=== PATIENT | male | born 1940 | race Caucasian/White ===

== ENCOUNTER 2021-02-18 14:25 | Emergency (ER) | payer OTHER, BC ==
[~2021-02-18] VITALS: Ht 182.9 cm; Wt 102.5 kg
[2021-02-18 16:35] VITALS: BP 153/83
[2021-02-18 16:35] LABS: ABSOLUTE NEUTROPHILS 12.9 thou/uL (1.4-8.2); BASOPHILS 0.3 % (0.0-2.0); EOSINOPHILS 0.3 % (0.0-3.0); HEMATOCRIT 39.9 % (42.0-52.0); HEMOGLOBIN 13.3 gm/dL (14.0-18.0); LYMPHOCYTES 4.9 % (24.0-44.0); MCH 34.1 pg (26.0-34.0); MCHC 33.3 g/dL (28.0-37.0); MCV 102.3 fL (80.0-100.0); MONOCYTES 13.6 % (1.0-8.0); POLYS 80.9 % (36.0-66.0); RDW 13.8 % (10.5-14.5)
[2021-02-18 16:40] LABS: URINE BILIRUBIN NEGATIVE (Negative); URINE BLOOD TRACE (Negative); URINE CLARITY CLEAR; URINE COLOR YELLOW; URINE GLUCOSE-RANDOM* NEGATIVE (Negative); URINE KETONES TRACE (Negative); URINE LEUKOCYTES-REFLEX NEGATIVE (Negative); URINE NITRITE-REFLEX NEGATIVE (Negative); URINE PROTEIN (DIPSTICK) 2+ (Negative); URINE SPECIFIC GRAVITY >= 1.030 (1.005-1.035)
[2021-02-18 16:45] LABS: CALCIUM 9.3 mg/dL (8.5-10.1); POTASSIUM 4.7 mmol/L (3.5-5.1)
[2021-02-18 16:49] LABS: SQUAMOUS None Seen /LPF (0-3); URINE RBC 1-2 Rare /HPF (NONE SEEN); URINE WBC-REFLEX 0-5 Rare /HPF (0-5)
[2021-02-18 16:50] LABS: BACTERIA-REFLEX None Seen /HPF (None Seen); CASTS None Seen /LPF (None Seen); CRYSTALS None Seen /LPF (None Seen)
[2021-02-18 16:54] LABS: PLATELET COUNT 201 thou/uL (150-400)
[2021-02-18] MEDS ORDERED: BYSTOLIC10 MG PO (19:26)
[2021-02-18] MEDS ORDERED: FLOMAX0.4 MG PO (19:26)
[2021-02-18] MEDS ORDERED: NEURONTIN 300M300 M2 PO (19:27)
[2021-02-18] MEDS ORDERED: MELATONIN3 M1 PO (19:28)
[2021-02-18] MEDS ORDERED: IRON325 PO (19:30)
[2021-02-18] MEDS ORDERED: DIVALPROEX SOD250 M3 PO (19:31)
[2021-02-18] MEDS ORDERED: VENLAFAXINE HCL75 M2 PO (19:32)
[2021-02-18] MEDS ORDERED: LIPITOR40 MG PO (19:32)
[2021-02-18] MEDS ORDERED: SEROQUEL 25 MG25 MG PO (19:33)
[2021-02-18] MEDS ORDERED: VENLAFAXINE HC150 MG PO (19:34)
[2021-02-18] MEDS ORDERED: MYRBETRIQ50 MG PO (19:36)
[2021-02-18] MEDS ORDERED: BENICAR20 MG PO (19:36)
[2021-02-18] MEDS ORDERED: ST. JOSEPH ASPI81 MG PO (19:37)
[2021-02-18] MEDS ORDERED: FLONASE 0.05%50 MCG NASAL (19:37)
[2021-02-18] MEDS ORDERED: PROTONIX40 M2 PO (19:38)
--- NOTE | 2021-02-19 07:30 | EKG ---
[address] [place] [address] ELECTROCARDIOGRAM REPORT Name: DONNY TAYLOR Room #: DEP LAYO Olivas#: [id number] Admission: 02/18/21 Attend Phys: Discharge: 02/18/21 Date of : 38 Report #: [id number] [facility] ED Test Date: 2021-02-18 Test Time: 16:16:34 Pat Name: DONNY TAYLOR Department: Room: Gender: M It Project Coordinator: : 1940 Requested By: Chema Hankins Order Number: [id number] MD: Freddie Ye Measurements Intervals [place] Rate: 84 P: 46 OK: 155 QRS: 63 QRSD: 97 T: 4 QT: 353 QTc: 418 Interpretive Statements Sinus rhythm Inferior infarct, age indeterminate No previous ECG available for comparison Electronically Signed On 02-19-2021 7:30:11 CDT by Freddie Ye [email or web address] <ELECTRONICALLY SIGNED> By: Freddie Ye MD, [facility] 02/19/21 0730 1616 1616 Freddie Ye MD, FACC /EPI
== END 2021-02-18 21:15 ==
LOC: ER 14:25
PROVIDERS: Emergency Medicine; Nurse Practitioner
DX: R41.82 Altered mental status, unspecified (principal); Z20.822 Contact with and (suspected) exposure to COVID-19; D72.829 Elevated white blood cell count, unspecified; Z79.82 Long term (current) use of aspirin; Z79.899 Other long term (current) drug therapy; Z79.891 Long term (current) use of opiate analgesic; Z79.1 Long term (current) use of non-steroidal anti-inflammatories (NSAID)

== ENCOUNTER 2021-02-18 15:24 | Inpatient (IN) | payer OTHER, BC ==
[~2021-02-18] VITALS: Ht 180.3 cm; Wt 93.4 kg
[2021-02-18] MEDS ORDERED: FLOMAX0.4 MG PO (19:26)
[2021-02-18] MEDS ORDERED: BYSTOLIC10 MG PO (19:26)
[2021-02-18] MEDS ORDERED: NEURONTIN 300M300 M2 PO (19:27)
[2021-02-18] MEDS ORDERED: MELATONIN3 M1 PO (19:28)
[2021-02-18] MEDS ORDERED: IRON325 PO (19:30)
[2021-02-18] MEDS ORDERED: DIVALPROEX SOD250 M3 PO (19:31)
[2021-02-18] MEDS ORDERED: LIPITOR40 MG PO (19:32)
[2021-02-18] MEDS ORDERED: VENLAFAXINE HCL75 M2 PO (19:32)
[2021-02-18] MEDS ORDERED: SEROQUEL 25 MG25 MG PO (19:33)
[2021-02-18] MEDS ORDERED: VENLAFAXINE HC150 MG PO (19:34)
[2021-02-18] MEDS ORDERED: MYRBETRIQ50 MG PO (19:36)
[2021-02-18] MEDS ORDERED: BENICAR20 MG PO (19:36)
[2021-02-18] MEDS ORDERED: ST. JOSEPH ASPI81 MG PO (19:37)
[2021-02-18] MEDS ORDERED: FLONASE 0.05%50 MCG NASAL (19:37)
[2021-02-18] MEDS ORDERED: PROTONIX40 M2 PO (19:38)
--- NOTE | 2021-02-19 01:20 | NUR ---
PATIENT CAME INTO THE UNIT AT 1900. HE WAS ADMITED TO RM [address] YOUNG.HE DENIES PAINS AND LUNGS ARE CLEAR BS ACTIVE X4 QUADS. HE IS IS ALERT AND ORIENTED. MEDICATION ARE VERIFIED AND DOCUMENTED PER ORDER HE DENIES PAINS AND DISCOMFORT AT THIS TIME.DENIES SI/AVH/AH. CALL TO HOSPITALIST AND SHE SAW THE PATIENT. NO SKIN ISSUE NOTED ON ASSESSMENT,BS ACTIVE X4 QUADS, ABD IS SOFT NONE TENDER. HE IS COMFORTABLE WITH CARE AND ADMISSION. PATIENT IS O FALL PRECAUTION. BED IS LOW, LOCKED AND ALARMED. YELLOW AND SOCKS AND TOP ON . O78ECOIDSE CHECK IS ONGOING. PERSONAL ITEMS ARE NOTED.CONTINE CARE.
[2021-02-19 04:34] LABS: CHOLESTEROL 96 mg/dL (<200); HDL CHOLESTEROL 37 mg/dL (>40); LDL CHOLESTEROL 44 mg/dL (<100); TC:HDL 2.6 Ratio (Not establshd); TRIGLYCERIDE 75 mg/dL (<150); VLDL 15 mg/dL (<40)
[2021-02-19 05:06] LABS: SERUM ASSESSMENT c
[2021-02-19 09:58] VITALS: BP 147/55
[2021-02-19 10:19] LABS: URINE BILIRUBIN NEGATIVE (Negative); URINE BLOOD 1+ (Negative); URINE CLARITY CLEAR; URINE COLOR YELLOW; URINE GLUCOSE-RANDOM* NEGATIVE (Negative); URINE KETONES NEGATIVE (Negative); URINE LEUKOCYTES NEGATIVE (Negative); URINE NITRITE NEGATIVE (Negative); URINE PROTEIN (DIPSTICK) 1+ (Negative); URINE SPECIFIC GRAVITY >= 1.030 (1.005-1.035)
[2021-02-19 10:31] LABS: BACTERIA 1-9 Few /HPF (None Seen); CASTS None Seen /LPF (None Seen); CRYSTALS None Seen /LPF (None Seen); MUCUS 0-3 Light strn/LPF (None Seen); SQUAMOUS 0-3 Few /LPF (0-3); URINE RBC 1-2 Rare /HPF (NONE SEEN); URINE WBC 1-5 Rare /HPF (NONE SEEN)
--- NOTE | 2021-02-19 12:57 | NUR ---
PATIENT CARE ASSUMED AT 0700, PATIENT SITTING IN THE DAY ROOM, ALERT AND ORIENTED X3, PATIENT IS HARD OF HEARING EVEN WITH THE EARING AID, PATIENT IS CALM AND COOPERATIVE WITH CARE, ACTIVE BOWEL SOUND WITH SOFT AND ROUNDED AMBDOMEN, BRATH SOUND CLEAR, SKIN INTACT, NO EDEMA NOTED, PATIENT TOOK HIS MEDICATION WHOLE WITHOUT ANY PROBLEM, PATIENT AMBULATE ON A LORE CHAIR, HE IS 2 TO 3 PERSON ASSIST, PATIENT RUNNING TEMP OF 99.6 AND 103.1, DOCTOR ILA WAS NOTIFIED, HE ORDERED UA, THE RESULT CAME BACK WITH PROTEIN AND BLOOD IN URINE, FALL PRECAUTION IN PLACE, NO BEHAVIOR CHANGES, PATIENT DENIES SI/HI, WILL CONTINUE TO MONITOR PATIENT FOR SAFETY AND BEHAVIOR
[2021-02-19 20:02] VITALS: BP 142/56
[2021-02-20 01:06] LABS: GLYCOHEMOGLOBIN (HGB A1C) 5.5 % (4.8-5.6)
--- NOTE | 2021-02-20 03:24 | NUR ---
PATIENT SITTING UP IN DAY ROOM AT BEGINNING OF SHIFT, WHEN DOING ASSESSMENT, PATIENT IS UNABLE TO FOLLOW ALONG IN CONVERSATION, WAS UNABLE TO ANSWER ASSESSMENT QUESTIONS. TOOK 2 STAFF MEMBERS TO PUT IN BED WHERE HE IS IS RESTING COMFORTABLY IN BED.
[2021-02-20 09:43] VITALS: BP 148/58
--- NOTE | 2021-02-20 10:50 | NUR ---
New [facility] admit for depression/SI. Advanced age 80, very hard hearing. Febrile past 2 days. Intake 75% lunch yesterday with refusal dinner. 2 different wts at admit 225 vs 204 lb. BMI 29. Follow wt/intake patterns but presents low nutrition risk.
--- NOTE | 2021-02-20 12:45 | NUR ---
PATIENT HAS BEEN UP, AND OUT IN [facility], SITTING IN [facility], PARTICIPATES IN GROUP THERAPY. PATIENT TOOK ALL MEDICATION WHOLE WITHOUT DIFFICULTY, HE IS EATING MEALS, AND DRINKING FLUID WELL. PATIENT DENIES SUICIDAL/HOMICIDAL IDEATION. PATIENT REQUIRES MAX ASSIST OF STAFF TO TRANSFER, AND PROVIDE ADL CARE. PATIENT'S TEMPRATURE THIS MORNING WAS 100.3, TYLENOL GIVEN FOR LOWER BACK PAIN, TEMP RECHECKED WITH RESULT OF 97.7. DR. YOUNG AWARE. FLU SWAB COMPLETED, SENT TO LAB, AWAITING RESULT. PATIENT IS TO ISOLATE TO ROOM TILL THE FLU RESULT IS OUT. AFFECT IS FLAT/BLUNTED, MOOD IS CALM, EUTHYMIC. PATIENT DENIES SUICIDAL IDEATION, ACKNOWLEDGES DEPRESSION, BUT NOT ABLE TO RATE IT. HE STATES HE IS "ANXIOUS TO GO HOME". NO AGITATION OR AGGRESSIVE BEHAVIOR NOTED AT THIS TIME, WILL MONITOR FOR SAFETY.
--- NOTE | 2021-02-20 16:04 | NUR ---
02-20-2021--1600--Call from [facility], Aubrey (son)--[phone]--I advised him that the test for flu that was done came back negative. Son expressed concerns about him not being up and moving and not having his cane (which is what he uses at home. He can't use a walker due to the injury to his left arm. Son wondered if PT/OT could be ordered so he can get up and moving. He is concerned that a week prior to him coming here he appeared to be declining and he didn't want him to slip further. Advised son I will let the doctor know his concerns and see of he wants to order PT/OT for him when he feels well enough.
[2021-02-20 19:08] VITALS: BP 154/76
--- NOTE | 2021-02-20 23:01 | NUR ---
PATIENT SITTING IN RECLINER IN COMMON AREA. PATIENT IS ALERT AND ORIENTED TO PERSON. PATIENT AT THIS TIME IS CALM AND COOPERATIVE. NOTICED THAT HE HAS MILD TREMORS WHEN ADMINISTERING HIS HS MEDS. PATIENT REQUIRES ASSISTANCE TO TRANSFER FROM CHAIR TO BED. DENIES PAIN OR NEEDS. NO DISTRESS NOTED. WILL CONTINUE TO MONITOR FOR CHANGE IN STATUS.
--- NOTE | 2021-02-21 09:09 | H ---
[facility] [place] [address] HISTORY AND PHYSICAL Name: DONNY FLANAGAN Room #: 519A-A ADM IN M.R.#: [id number] Admission: 02/18/21 Attend Phys: Nathan Ibrahim DO Discharge: Date of : 38 Report #: [id number] THIS REPORT FOR: cc: FAM - Family physician unknown FAM - Family physician unknown Nathan Ibrahim DO ~ DATE OF SERVICE: 02/19/2021 INPATIENT PSYCHIATRIC EVALUATION ATTENDING PSYCHIATRIST: Nathan Ibrahim DO MEDICAL CONSULTANTS: Tiffanie Manrique APRN and her collaborating physician, Rylan Hilliard MD, and his hospitalist team. SOURCES OF INFORMATION: ER and hospital records here at [facility]; interview with the patient, which was done with case management social worker, Jana; telephone conversation with his son and reported DPOA, Aubrey Flanagan. CHIEF COMPLAINT: Unspecified. HISTORY OF PRESENT ILLNESS: This is an 80-year-old, older than stated age appearing gentleman who is seen in a Tessie chair. We rolled it to a quiet private area at the end of the lay, given his mobility disability. The patient was not able to tell us why he was brought to the hospital or there are any specific concerns. 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 He also was able to tell us he is on his second marriage. The patient obviously had pausing with some thoughts, particularly with recent information, finding words. Interestingly, he and his both have hearing deficits, and they currently have a technology that automatically puts the phone call to the hearing aid. I believe his first was named, Elva and his second is Emiliana. He uses a CPAP machine, which I do not think has arrived to us yet. The patient was born in [place]; BS in economics, [employer] in finance, [employer] bachelor's degree, [employer]. He worked for the [employer], retired 20 years ago. His hobbies were tennis, skiing, and deer hunting. He was an avid deer keith. He described that his suicidal thoughts was feeling guilty for the amount of caregiving his has to do. The patient's son stated he fell in July. He had several small brain bleeds. He has had a precipitous decline in functioning since then. He tends to fixate on things at night. He has been up at night, depressed, threatened to throw himself down the stairs; told friend he has brain cancer, which is not true. The family would like physical therapy evaluation. In addition, the patient gets fixated on small things. We asked the son to bring copy of the [facility] paperwork, as apparently one [address] [address] HISTORY AND PHYSICAL Name: DONNY FLANAGAN Room #: 519A-A ADM IN M.R.#: [id number] Admission: 02/18/21 Attend Phys: Nathan Ibrahim DO Discharge: Date of : 38 Report #: [id number] given in the ER. He had neuropsych testing year and a half ago at [place], did not show dementia at that time. The son has mild concerns there is a dementia. PHYSICAL EXAMINATION: VITAL SIGNS: Temperature 39.5, pulse 88, respirations 17, BP 147/55, O2 sat 92%, weight 95.7 kg, height of 180.34 cm, BMI 29.4. GENERAL: In Tessie chair, unkempt, appearing to have left upper extremity with limited function. MENTAL STATUS EXAMINATION: This is a well-developed male, appearing older than stated age. Attention limited. Concentration limited. Speech soft, normal rate. Thought process linear and goal directed. Thought content, relative poverty of thought. He did have pauses when responding to things like why he was in the hospital. The patient was oriented to person. Could not get him to respond the actual day, month, or year. He did not know the name of the place. I have asked case management social worker to perform a [facility] mental status examination. The patient admitted to the statements about thinking he would be better off due to burden on his . He denied current plan to kill himself. Denied auditory, visual, or tactile hallucinations. No homicidal ideation. Mood and affect was okay, constricted, congruent. Memory believed to be impaired, not formally tested. Insight limited. Judgment limited. Fund of knowledge diminished. LABORATORY DATA: White count was high at 16.0 with no focus , H and H 13.3 and 39.9, platelet count 201. A1c high at 12.9. Sodium 139, potassium 4.7, chloride 101, bicarbonate 29, anion gap 9, BUN 18, creatinine 1.0, glucose 132, calcium 9.3, triglycerides 75, cholesterol 96, LDL 44, HDL 37. Urinalysis; 1+ protein, 1+ blood, 1-9 bacteria, light mucus, I doubt that triggered the culture. SARS-CoV-2 PCR was not detected. IMAGING: Chest x-ray was done on 02/18/2021, which showed no acute cardiopulmonary process. FORMULATION: An 80-year-old male, presenting with vague SI and failure to thrive concerns. DIAGNOSES: At this time, unspecified depressive disorder, rule out major depressive disorder, rule out major neurocognitive disorder due to vascular insult. Medical comorbidities include hypertension, hyperlipidemia, gastroesophageal reflux disease, status post left shoulder fracture, recent hemorrhagic stroke. No neurosurgery was done. PLAN: The patient is admitted voluntarily to [facility]. He is on tamsulosin 0.4 mg daily, Seroquel 25 mg at [facility] [address] [place] [address] HISTORY AND PHYSICAL Name: CLAUDIADONNY Room #: 519A-A ADM IN M.R.#: [id number] Admission: 02/18/21 Attend Phys: Nathan Ibrahim DO Discharge: Date of : 38 Report #: [id number] bedtime, gabapentin 300 mg at bedtime, atorvastatin 40 mg at bedtime, venlafaxine extended release 150 mg p.o. daily, pantoprazole 40 mg p.o. daily, olmesartan 10 mg p.o. daily, nebivolol 2.5 mg oral daily, fluticasone propionate b.i.d. nasal, ferrous sulfate, Depakote 250 b.i.d. Regarding his meds, I think we will increase his Seroquel 25 mg b.i.d. The gabapentin I do not see a great role for who is on Depakote, but there may be more of an explanation of that, I know. We will discontinue melatonin. We will screen for dementia. Estimated length of stay 10-14 days. STRENGTHS: He is insured, supportive family. WEAKNESSES: Advanced age, multiple morbidities. Time spent on this case is greater than 60 minutes, greater than 50% of time was reviewing records and coordination of care. <ELECTRONICALLY SIGNED> By: Nathan Ibrahim DO 02/21/21 0909 1227 1337 Nathan Ibrahim DO /nt
[2021-02-21 09:30] VITALS: BP 134/52
--- NOTE | 2021-02-21 11:35 | NUR ---
02-21-2021--1115--Asked doctor about ordering OT and PT for the patient as requested by DALILA, Aubrey (son). Doctor checked and it has already been started.
[2021-02-21 11:39] VITALS: BP 134/52
--- NOTE | 2021-02-21 12:47 | NUR ---
PATIENT CARE RESUMMED AT 0700. PATIENT IS A&O*2, LUNGS CLEAR, ABDOMEN SOFT WITH BOWEL SOUNDS PRESENT IN ALL 4 QUADRANTS. PATIENT STATED HE SLEPT WELL. PATIENT DENIES SI/HI/VH/AH. PATIENT STATED HE IS ANXIOUS ABOUT "GETTING A CAT SCAN DONE." PATIENT UNSURE OF WHY HE IS HERE ON OUR UNIT. PATIENT STATES HE IS A LITTLE DEPRESSED, SCALING A 1 ON A SCALE OF 0-10. PATIENT SAYS HE IS JUST "LOOKING FORWARD TO MOVING ON." PATIENT SEEN BY OT TODAY, AND PARTICIPATED WELL IN THERAPY. PATIENT IS HARD OF HEARING AND ASKS TO TAKE MASK OFF SO HE CAN READ LIPS. 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 FALL PREVENTIONS ARE IN PLACE, WILL CONTIUE TO MONITOR PATIENT FOR SAFETY AND BEHAVIORS.
--- NOTE | 2021-02-21 13:26 | NUR ---
02-21-2021--5818--Went to do the SLUMS with patient. He was asleep and when I woke him up he stated he wanted to do it tomorrow AM. I told him I would come back after breakfast.
--- NOTE | 2021-02-21 15:50 | NUR ---
02-21-2021--1530--Call from AubreySHARRIJANEE and his , José Miguel. Aubrey was wondering if we were still going to do the family meeting. I told him we can do that tomorrow and asked if 1430 would be okay. He was agreeable to the time and I told him I would talk to the doctor to determine if that time worked for him. Aubrey and his stated they were concerned that Emiliana () and the patient can't talk to each other on the portable phone on the unit and she has never used TTD as this is technology that she is not comfortable with. Aubrey states that he thinks patient's phone is not in security but Emiliana has it. He states the patient's phone and her hearing aides are "bluetoothed" together. so they can talk together with his phone. He will have Emiliana bring it tomorrow. (I will talk with my supervisor [employer]eno [employer] in the AM to see if we can keep the phone in her office and I will supervise the phone calls or the patient can do it in my office.) I explained that we can use an office in the outside of the unit so Emiliana can be present. However I explained the paitent will not be present and they cannot visit him. Aubrey wants to know why patient had the fever. I told him I didn't have the answer to that and to write down questions he has to ask tomorrow. I told him patient had a test for COVID and he flu and he was negative for both. Son was very concerned if his dad is going to get back to where he was a week and a half ago. I explained this was another question for the doctor but people woith dementia can have something happen and then deteriorate quickly. I asked what his expectations were. He would like for him to go home to Emiliana but feels we need to be looking for a placement if he is going to be too much for her to care for. I asked if Emiliana would consider an AL with him and he thought she would. I explained this is another question for the doctor. I assured him that I can start sendong out packets to AL facilities as soon as they tell me where and see if the doctor thinks this is necessary yet. Aubrey wants to know "what's next". I attempted to explain we can't tell him that with any certainty. He stated his understanding and is anxious for the meeting tomorrow. I explained PT/OT had done evals today and we would get a report tomorrow in team meeting. I explained they only see our people M-W-F not daily.
[2021-02-21 18:48] VITALS: BP 113/52
--- NOTE | 2021-02-21 21:23 | NUR ---
PATIENT RESTING IN THE COMMON AREA WATCHING TV. PT IS CALM AND COOPERATIVE. HE IS AAOX2. COMPLIANT WITH MEDICATIONS AND TREATMENT. VSS. NO S/S OF DISTRESS. PT IS UNSTEADY ON HIS FEET AND REQUIRES ASSISTANCE X2 WHEN TRANSFERRING. PATIENT IS INCONTINENT. WILL CONTINUE TO MONITOR FOR CHANGES IN STATUS.
--- NOTE | 2021-02-22 07:50 | NUR ---
02-22-2021--9585--Patient was in the dayroom. He was sittoin viktoriya his sam-chair, asleep. Woke patient up and explained we would be completing the SLUMS this morning. He was agreeable. He appeared groggy. SLUMS completed but I didn't score it because the clock didn't have all the numbers on it. He only put the 12-3-6 and 9. It did appear he got the time right. Even with this four points added in he will only score 14 which indicates substantial dementia. Will talk to doctor at team meeting this morning.
--- NOTE | 2021-02-22 08:00 | NUR ---
02-22-2021--0800--Spoke to supervisor [employer] re: the patient having his phone since his 's hearing aides were bluetoothed to his phone. She is agreeable to this. She states she will keep it in her office if necessary.
[2021-02-22 09:10] VITALS: BP 128/68
--- NOTE | 2021-02-22 13:55 | NUR ---
Alert and orientated to person and knows he is in hospital. Denies SI/HI. Asking about eye drops and also asked about CPAP per another RN. Able to stand with assistance. Breath sounds clear. Reg HR auscultated. Color pink with brisk capillary refill and palpable peripheral pulses. +1 edema in lower legs, elevated. Brief dry. Active bowel sounds over soft, rounded abdomen. BM last night per report. Contacted son and DPOA Aubrey r/t eye drops. He asked if pt had used CPAP previous night. Explained that per Gi in team meeting that he was not using CPAP during admission. Son disagreed and thought he was on CPAP. Clarified with Gi and Dr. Ibrahim, will discuss with son during family meeting this afternoon. Pt. sleeping most of day in recliner in day room. No s/o distress.
[2021-02-22 19:24] VITALS: BP 118/51
--- NOTE | 2021-02-22 23:21 | NUR ---
PATIENT RESTING IN THE COMMON AREA WATCHING TV. PT IS AAOX2. STATES THAT HE WAS TIRED AND WANTED TO GO TO BED. PT TOOK HIS MEDICATIONS ORDERED. PT WAS TRANSFERRED TO HIS ROOM. PT DENIES PAIN OR NEEDS AT THIS TIME. VSS. NO DISTRESS NOTED. WILL CONTINUE TO MONITOR.
[2021-02-23 07:15] VITALS: BP 125/54
--- NOTE | 2021-02-23 10:54 | NUR ---
Alert and orientated to person and place. Multiple requests to speak with , called x2 and son this AM. Denies SI/HI. Slightly irritable this AM but displaying humor later in AM. Conversive and participating in activity group. Breath sounds clear. Reg HR auscultated. Color pink with brisk capillary refill and palpable peripheral pulses. +1-2 edema in lower extremities. Incontinent of yellow urine and large, soft dk brown stool. Active bowel sounds over soft, rounded abdomen. Able to stand several times and transfer to from recliner, pulling himself around in WC. Currently sitting in watching TV.
--- NOTE | 2021-02-23 23:08 | NUR ---
PATIENT RESTING IN THE COMMON AREA. STATES THAT HE IS READY FOR BED UPON HS SHIFT ARRIVAL. TALKED WITH PATIENT THAT HE NEEDED HID MEDICATION BEFORE GOING TO BED. PT COMPLIED. TOOK ALL MEDICATIONS. WAS TRANSFERED TO HIS ROOM VIA WHEELCHAIR. PATIENT DENIES PAIN OR NEEDS AT THIS TIME. NO DISTRESS NOTED. HE IS AAOX3. WILL CONTINUE TO MONITOR FOR CHANGES IN STATUS.
[2021-02-24 10:15] VITALS: BP 146/69
[2021-02-24 10:55] VITALS: BP 146/69
--- NOTE | 2021-02-24 15:03 | NUR ---
PATIENT CARE RESUMMED, PATIENT UP IN LORE-CHAIR FOR MEALS AND GROUPS. PATIENT AMBULATORY TO AND FROM BATHROOM WITH 1-ASSIST, WALKER AND GAIT BELT. PATIENT IS UNSTEADY AT TIMES. PATIENT A&O*2 (SELF & TIME), LAST BOWEL MOVEMENT NOTED ON 02/24/21. PATIENT DENIES HAVING ANY PAIN AT THIS, BUT DID STATE TO THE EVS MANAGER "I HAVE CHRONIC BACK PAIN, AND IT DOESN'T HURT UNLESS IM IN THE WRONG POSITION." PATIENT STATED HE SLEPT THE BEST HE EVER DID LAST NIGHT. PATIENT PRESENTED IN A PLEASENT MOOD, SMILING AND HAPPY. PATIENT IS MEDICATION AND MEAL COMPLIANT. DENIES SI/HI/AH/VH, DEPRESSION, AND ANXIETY. PATIENTS LUNG SOUNDS ARE CLEAR, ABDOMEN IS SOFT, AND BOWEL SOUNDS ARE PRESENT IN ALL 4 QUADRANTS. PATIENT DID RECIEVE A PHONE CALL TODAY FROM HIS , WHICH DID SEEM TO CAUSE THE PATIENT SOME DISTRESS. PATIENT WITNESSED RAISING HIS VOICE TO HIS TO GET HIM THE HELL OUT OF HERE, AND GET HERE WITH THE PAPERWORK TO GET HIM OUT. [place] LATER CALMED DOWN, AND TOOK A NAP IN HIS LORE-CHAIR WATCHING THE [employer] GAME. FALL PRECAUIONS ARE IN PLACE, WILL CONTINUE TO MONITOR THE PATIENT FOR SAFETY AND BEHAVIORS.
--- NOTE | 2021-02-24 18:38 | NUR ---
This RN was sitting with pt while he used his personal cell phone to talk to his , as this was previously approved for pt. Pt began to appear worked up and raising his voice to his and son. He told his "If you don't come up here right now to talk to me, I'm commiting suicide". This RN tried to explain to pt that we are not currently having visiting hours and that it is not her fault she cannot visit. Pt appeared very focused on this and did not appear to care to listen to this explaination. It was also explained to pt to please try and remain calm on the phone. He also mentioned not eating today and that he was not going to eat tomorrow, stating "How long do you think I'll last!?". Pt also voiced mutiple complaints about being here and pt's family tried to explain to him he is here due to his suicidal thoughts and that it is not safe for pt to return home at this time, as pt was demanding them to come pick him up. Pt also made a comment of "I wish I would've just went to the basement". At the end of the phone call pt stated "well can you guys promise me to call everyday?" and the family agreed. Pt's RN, Roxanne, then called pt's to give her an update and discuss the conversation pt just had with them.
[2021-02-24 19:20] VITALS: BP 154/77
[2021-02-24 20:00] VITALS: BP 154/77
--- NOTE | 2021-02-25 03:36 | NUR ---
PATIENT SAT UP IN LORE CHAIR AT A TABLE IN DINING ROOM THIS EVENING UNTIL BEDTIME. PATIENT IS A/0X4. PATIENT HIS [place] AND WEARS 2 HEARING AIDS. ORDER RECEIVED FOR OKAY FOR PATIENT TO USE CPAP MACHINE WITHOUT A 1:1 LONG NO SI AND ROOM IS CLOSE TO NURSE STATION FOR OBSERVATION. PATIENT DENIES SI/HI TO THIS NURSE. HOWEVER, DAY NURSE REPORTS THAT WHEN HE TALKS WITH FAMILY HE THREATENS TO KILL HIMSELF IF THEY DON'T COME GET HIM AND HE TELLS FAMILY THAT WE ARE NOT FEEDING HIM WHEN HE HAS BEEN EATING VERY WELL. BELIEVE PATIENT IS TRYING TO MANIPULATE FAMILY TO CATER TO HIM. PATIENT HAS BEEN CALM AND COOPERATIVE TONIGHT. PATIENT EAGER TO START PT TO AMBULATE WITH WALKER HOPEFULLY SOON. PATIENT IS UP TO BSC WITH ASSIST X 1-2. HE DENIES PAIN. DENIES SI/HI/AVH. CPAP PLACED ON PATIENT AT BED TIME AND WORKING. PT REMOVES MASK AND PUTS BACK ON PERIODICALLY. PATIENT AWOKE FOR TIME CHECK AND WATER TO DRINK. CONTINUES TO BE PLEASANT AND COOPERATIVE. HE HAD HS SNACK AND TOOK HIS MEDS WHOLE WITH WATER. BED IN LOW POSITION AND BED ALARM IS ON. ROUTINE ROUNDS TO ASSESS SAFETY AND STATUS OF PATIENT. CHAIR ALARM WAS ON AND IN PLACE WHEN PATIENT WAS UP IN LORE CHAIR.
--- NOTE | 2021-02-25 07:22 | NUR ---
02-22-2021--1500--Family meeting in the building--Patient not present--Meeting in the building because of 's hearing deficit. Also present: Patient's son Aubrey; Aubrey's was on the phone; Dr. Ibrahim and this worker. Educated family about the possible need for assisted when he is DC'd from here. Doctor explained the issues (not walking; PT just starting) Family to discuss facillities they might be interested. Son will go to patient's house for phone call to tell worker what has been decided. He will help patient's if she can't hear.
[2021-02-25 09:02] VITALS: BP 145/73
--- NOTE | 2021-02-25 11:05 | NUR ---
02-25-2021--1105--Call to Aubrey to obtain Emiliana's number ([phone]) He will be at her house for call at 3:00 PM. He states she and his , José Miguel, are out looking at facilities today and will let me know what they find so paperwork can be sent.
--- NOTE | 2021-02-25 11:12 | NUR ---
02-25-2021--1115--Call from Emiliana () wanting to leave patient a message--"I love you and your son and I are getting things done". Message given to patient. He was happy to receive it. Reminded Emiliana that we have a meeting on the phone at 3 and Aubrey will be at her house to help her with the call. She stated she remembers.
--- NOTE | 2021-02-25 13:54 | NUR ---
RT Progress Note- Zheng has been present in the milieu each day since his admission. He has also been present in group therapy, however his participation is limited at times d/t functioning of his hearing aids. He expresses difficulty hearing in group situations where there is background noise. Zheng has not had any behaviors or statements of suicide during RT programming. PARKING ENFORCEMENT SPECIALIST will continue to encourage his participation.
--- NOTE | 2021-02-25 15:42 | NUR ---
02-25-2021--1500--Call to Emiliana (patient's ) ([phone]) with patient's son (DALILA) Laurel and his José Miguel on the phone. They called about a few homes today that have not called them back. They would like me to fax his information to four facilitiesdd: [facility]; [facility]; [facility]; and [facility] [place]. They wanted copies of OT/PT reports e-mailed to laurel at [email or web address]. Let MD no he can do thois but OI can not due to HIPPA. They need to request these through Medical records ([phone]). I mentioned that patient had refused therapy with the PT. All stated we told them we would call them immediately if this happened and they would talk to him. Explained therapists do not come to us immediately with this information. I didn't know if they would try later in the day. Family was angry that I hadn't called them immediately when he refused because the doctor and I said we would. 02-25-2021--1482--Call to DALILA Laurel and advised I will ask doctor to email reports otherwise they would have to ask for them from medical records.
--- NOTE | 2021-02-25 17:27 | NUR ---
Assumed pt care at 0700. pt was alert and oriented x4. Assessments completed, vss. Lungs clear, active bowel sound. Denies si/hi, denies pain at this time. Took meds whole, no difficulty noted. Ambulates with a Tessie chair. Calm and cooperative with care. Continent of bowel and bladder. Make needs known to staff. Pt son called to speak to pt. Phone was handed to pt. At this time pt is in room resting will continue to monitor.
[2021-02-25 19:07] VITALS: BP 154/80
--- NOTE | 2021-02-26 02:51 | NUR ---
PATIENT APPEARS ALERT AND ORIENTED BUT AT TIMES IS FORGETFUL. PATIENT TAKEN DOWNSTAIRS THIS EVENING FOR A CT SCAN. PATIENT IS MEICATION COMPLIANT AND USES A LORE CHAIR FOR GETTING AROUND. PATIENT HAS BEEN CALM AND COOPERATIVE DURING THIS SHIFT.
[2021-02-26 09:20] VITALS: BP 150/73
--- NOTE | 2021-02-26 11:10 | NUR ---
02-26-2021--1100--Faxed new referral paperwork to Nursing homes as requested yesterday (02-25-2021) on phone/family meeting. They were sent to: Brittani Rivas) [facility] [facility] and [facility]. Waiting on calls from facilities.
[2021-02-26 11:25] VITALS: BP 150/73
--- NOTE | 2021-02-26 11:26 | NUR ---
Followup: remains on SBU. No longer febrile. Intake is 75-100% now. New wt of 206 lb, up 2 lb from last weight. Remains on regular diet. Low nutrition risk
--- NOTE | 2021-02-26 12:37 | NUR ---
I have reviewed the documentation by DAGOBERTO MENESES from 02/26/21 to 02/26/21 and I concur with it. RAVI WHITESIDE
--- NOTE | 2021-02-26 13:22 | NUR ---
02-26-2021--1230--Call from [facility] [place]. Message left for me stating they werer going to deny the referal for this pagtient as they couldn't meet his care needs and they didn't have retirement care.
--- NOTE | 2021-02-26 13:34 | NUR ---
PATIENT CARE RESUMMED, PATIENT IN BED LYING IN A LOW FOWLERS POSITION. PATIENT MEDICATION AND MEAL COMPLIANT. PATIENT PRESENTED TO ROUSTABOUT CREW PUSHER IN A POSITIVE, HAPPY, SMILING APPERANCE. PATIENT IS A&O*4, ABDOMEN IS SOFT WITH BOWEL SOUNDS PRESENT, LUNG SOUNDS ARE CLEAR. PATIENT DENIES SI/HI/AVH, DENIES DEPRESSION/ANXIETY, AND DENIES HAVING ANY PAIN. 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 PATIENT WAS SEEN BY OT AND PT TODAY. PATIENT IS CONTINENT OF BOWEL AND BLADDER AND ALERTS STAFF WHEN ASSISTANCE IS NEEDED. PATIENT NOTED TO HAVE DRY/WHITE MUCOUS MEMBRANES, INCREASED FLUIDS HAVE BEEN NOTED. PATIENTS VITALS ARE WNL. FALL PRECAUTIONS ARE IN PLACE, WILL CONTINUE TO MONITOR PATIENT FOR SAFETY AND BEHAVIORS.
[2021-02-26 19:37] VITALS: BP 137/68
--- NOTE | 2021-02-27 03:31 | NUR ---
PATIENT WAS OVERHEARD ON THE PHONE WITH ASKING HERE TO PICK HIM UP AND IF SHE DIDN'T THAT HE WAS GOING TO KILL HIMSELF. WAS TOLD IN REPORT THAT HE SAYS THE SAMETHING EVERYTIME HE IS TALKING TO OR SON. I SIT DOWN WITH PATIENT AND ASKED WHY HE KEPT TALKING ABOUT KILLING HIMSELF WITH HIS FAMILY AND DENIED SI TO US. PATIENT STATED HE GOT ANGRY BECAUSE THEY WOULD NOT COME GET HIM. I ADVISED PATIENT IF HE KEPT TALKING LIKE THAT HE MIGHT HAVE TO STAY LONGER BECAUSE WE COULD NOT DISCHARGE HIM IF HE WAS A DANGER TO HIMSELF. PATIENT THANK ME REPEATLY FOR THAT INFORMATION. PATIENT IS MED COMPLIANT AND HAS SLEPT THROUGH THE NIGHT.
--- NOTE | 2021-02-27 07:13 | NUR ---
02-27-2021--699--Message left from patient's son re: [email or web address] and stating he thought I was going to call him daily with updates (something I never agreed to). He wanted to know about facilities accepting the patient and so far the only one who called after referrals sent to facilities they requested was [facility] and they denied. Will call other facilities this AM and return his call. He stated he had been expecting him to be DC'd somewhere today, "but I suppose that isn't going to happen now".
--- NOTE | 2021-02-27 07:40 | NUR ---
02-27-2021--8117--Call to patient's son as requested in his message from yesterday. Advised the only one that responded out of the five I sent was [facility] and they denied. I asked if he had others he wanted me to try and explained I would call the other four after 0900 today and try to talk to someone in admissions. He stated his had talked to a facility that was supposed to "reach out" to me and I advised I have had no calls or messages from anyone except [facility] (as stated above) but I would check with the other SW to see if the call might have gone to her when she comes in.
[2021-02-27 10:12] VITALS: BP 143/63
[2021-02-27 10:50] VITALS: BP 143/63
--- NOTE | 2021-02-27 13:35 | NUR ---
PATIENT CARE ASSUMED AT 0700 - SITTING IN LORE CHAIR. PLEASANT AND RESPONSIVE WITH HESITATION TO QUESTIONS ADDRESSED TO HIM. PATIENT UNABLE TO AMBULATE - MAKES NEEDS KNOWN. GOOD APPETITE. 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 ABLE TO TALK ABOUT EVENTS FROM THE PAST BUT SHORT TERM MEMORY LIMITED. NO AGITATION OF AGGRESSIVE BEHAVIOR. CALM AND REDIRECTABLE AND PLEASANT. DENIES S/I CURRENTLY - ADMITS HAS HAD THOUGHTS OF IT IN THE PAST - COMPLIANT WITH MEDICATIONS. DENIES ANY PAIN DISCOMFORT WHEN ASKED. WILL CONTINUE TO MONITOR PATIENT FOR ANY CHANGES IN BEHAVIOR OR CONCERNS AND ADDRESS ACCORDINGLY.
[2021-02-27 19:24] VITALS: BP 133/69
[2021-02-27 20:06] LABS: SYPHILIS AB Non Reactive (Non Reactive)
--- NOTE | 2021-02-28 03:17 | NUR ---
PATIENT REQUESTED TO GO TO BED T SHIFT CHANGE, PATIENT HAS BEEN CALM AND COOPERATIVE WITH STAFF, MEDICATION COMPLIANT AND HAD A NICE TALK WITH HIS SON LAST NIGHT. PATIENT DENIES ANY PSYCH ISSUES.
[2021-02-28 09:10] VITALS: BP 126/58
--- NOTE | 2021-02-28 11:18 | NUR ---
Alert and orientated to person and place. Appropriate responses to questions/conversation. Denies SI/HI. Ambulates with slow steady gait with walker with assistance. Breath sounds clear. Reg HR auscultated. Color pink with brisk capillary refill and palpable peripheral pulses. + 1 edema in lower legs, improved from Thursday. Brief dry. Active bowel sounds over soft, rounded abdomen. Sitting in recliner in day room without s/o distress.
--- NOTE | 2021-02-28 12:02 | NUR ---
MATTHEW received [facility] MATTHEW spoke with pt's son Aubrey who said it was okay to send referrals outside of [facility] and find a skilled placement for pt. MATTHEW will continue to follow pt during her stay on this unit.
--- NOTE | 2021-02-28 16:16 | NUR ---
I have reviewed the documentation by DAGOBERTO MENESES from 02/28/21 to 02/28/21 and I concur with it. RAVI WHITESIDE
[2021-02-28 19:19] VITALS: BP 121/58
--- NOTE | 2021-03-01 00:53 | NUR ---
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 THIS SHIFT PT WAS ALERT AND ORIENTED TO PERSON AND PLACE. PT STATED THE DATE WAS 03/09/21. PT STATED HE CAME TO THE HOSPITAL DUE TO HAVING MEMORY PROBLEMS. PT WAS CALM, PLEASANT AND COOPERATIVE WITH BROAD AFFECT. PT WAS COMPLIANT WITH MEDICATION AND VITAL SIGNS. PT DENIED SI, HI AND AVH. PT STATED HE DOES FEEL DEPRESSED A LITTLE, BUT THE DEPRESSION IS DUE TO BEING IN THE HOSPITAL. PT STATED HE WOULD LIKE TO DISCHARGE SOON. PT USED HIS HOME CPAP OVERNIGHT. FALL PRECAUTIONS ARE IN PLACE.
--- NOTE | 2021-03-01 06:50 | NUR ---
03-01-2021--0650--Patient has been accepted Thursday03-07-2021@ [facility]. Will set up transportation with express unless son wishes to transport. I will contact son today after verifying time with the facility.
[2021-03-01 08:45] VITALS: BP 123/68
[2021-03-01 09:38] VITALS: BP 123/68
--- NOTE | 2021-03-01 10:48 | NUR ---
Assumed care from overnight shift this am. Client was in activity area sitting in chair resting. Client expressed that he was disappointed in staying on facility until Thursday, as staff had helped him call his so he could speak to her, and she gave him this update. RHINESTONE SETTER used therapeutic communication to assure client that [facility], and that he could call friends and family until then. Client stated that he was thankful for this support. Client expressed feeling anxious and a little depressed about this initially, but stated that his anxiety abated with staff support. Client denied feelings of suicide and homicide. Lung sounds were clear; bowel sounds present. Client presented alert and oriented x3 at this time. No further concerns. Will continue to monitor for safety and psychiatric concerns.
[2021-03-01 19:38] VITALS: BP 111/55
--- NOTE | 2021-03-02 00:20 | NUR ---
AT ONSET OF MANAGER TALENT PT WAS SITTING IN LORE CHAIR IN DAY ROOM. THIS SHIFT PT WAS ORIENTED X3. PT WAS COOPERATIVE WITH MEDICATIONS AND VITAL SIGNS. PT WAS CALM, PLEASANT AND COOPERATIVE. AFFECT WAS BROAD. PT SMILED WHEN SPEAKING WITH RN. PT STATED HE IS READY TO DISCHARGE. PT IS FRUSTRATED HE IS STILL HERE. PT STATED HE HAS BEEN TOLD DIFFERENT DISCHARGE DATES AND DOES NOT KNOW WHAT TO BELIEVE. PT DENIED SI. PT USED HOME CPAP. FALL PRECAUTIONS ARE IN PLACE. WILL CONTINUE TO MONITOR.
[2021-03-02 09:26] VITALS: BP 125/69
--- NOTE | 2021-03-02 12:04 | NUR ---
Assumed pt care at 0700. pt was alert and oriented to person, and place. Assessments completed, vss. Lungs clear, active bowel sound. Took med whole, no difficulty noted. Denies si/hi. No c/o pain at this time. Ambulates with a Tessie CHAIR. NO SIGN OF ACUTE DISTRESS NOTED UPON ASSESSMENTS. Pt is a max assist. Incontinent of bowel and bladder. Makes needs known to staff. Calm and cooperative with care. At this time pt is eating lunch. Will continue to monitor.
[2021-03-02 20:28] VITALS: BP 150/90
--- NOTE | 2021-03-03 06:32 | NUR ---
ASSUMED CARE ON 03/02/21 @ 1900, RETIRED TO BED @ , COOPERATIVE WITH ASSESSMENT AND COMPLIANT WITH MEDIATION, TAKING MEDS WHOLE WITH WATER. ONLY SLEPT 2.4 HOURS ORIENTED X2 TO PERSON AND PLACE. BED IN LOW POSITION, BED ALARM SET, WILL CONTINUE TO MONITOR FOR SAFETY AND COMFORT.
[2021-03-03 09:41] VITALS: BP 158/65
[2021-03-03 13:30] VITALS: BP 158/65
--- NOTE | 2021-03-03 18:01 | NUR ---
Zheng was alert and oriented to self, place, stituation, and loosly to time. He was able to tell this RN that it was 2020 and that Edil is approaching, but could not recall the month. Pt was calm and cooperative throughout the day, and pleasant upon approach. He was noted smiling at times throughout the day and was medication compliant, without difficulty. This afternoon when explaining that group was about to start and that he could call his family after group, pt did not like the rule of no phones during group time and responded by, "that's bullshit", but later after phone call was completed pt thanked this RN and was appreciative. Pt told his family that he was not eating, and mentioned "so I don't know how much longer I'll last", but pt did eat all three meals this shift. Pt is hoping to D/C tomorrow which pt's son, Aubrey, also reiterated to pt is the tentative and hopeful plan. Pt denied SI to this RN this shift. Will continue to monitor.
[2021-03-03 19:54] VITALS: BP 121/55
[2021-03-03 20:40] VITALS: BP 121/55
--- NOTE | 2021-03-04 01:45 | NUR ---
PATIENT SAT UP IN LORE CHAIR IN DINING ROOM UNTIL BED TIME THIS EVENING. HE HAS BEEN CALM AND COOPERATIVE. A/0X3-4. HE STATES THAT HIS SON IS PICKING HIM UP TOMORROW FOR A LUNCH DATE. NOTES STATE [facility]. UNSURE OF DETAILS BUT SON MAY BE TAKING PATIENT THERE. DR YOUNG CALLED AND UPDATED ON THIS. PATIENT DENIES SI/HI/AVH. HE TOOK HIS HS MEDS WHOLE AND WITH WATER. PT IS ASSISTX 2 TO BED. BED IN LOW POSITION AND BED ALARM IS ON. CONTINUING TO MONITOR.
[2021-03-04 09:38] VITALS: BP 125/64
[2021-03-04 10:05] VITALS: BP 125/64
--- NOTE | 2021-03-04 11:35 | NUR ---
03-04-2021--1135--Kenny in [facility] stated they bender not received the fax. I resent the faxes to them. Call made to DALILA Burgos and advised him [facility] on [facility] denied and Kenny is now looking at the paperwork. I advised him I would call him if I hear from Kenny.
--- NOTE | 2021-03-04 12:52 | NUR ---
03-04-2021--0413--Call to Aubrey to advise that [facility] denied because hey can't meet his needs and feel he needs memory care. I told him I called [facility] and left a message and I am waiting for them to call me back. He sounded very frusytrated and I apologized and explained this is often what happens with any patient. I advised him if he thought of any more to let me know and told him Gali had sent 12 referrals on Thursday and I haven't had any messages about them.
--- NOTE | 2021-03-04 14:07 | NUR ---
03-04-2021--1415--Call from Cat who thought she might be able to get patient into [facility] in [place], [place] (She states this is a behavioral unit.) She will follow up with marketing and let me know.
--- NOTE | 2021-03-04 15:03 | NUR ---
03-04-2021--1500--Call from Aubrey re: Óscar Burgos. I advised him they denied. He asked me o call Dada [facility]. Call made and msg. left for marketing to call me back. Told him about a possible placement at [facility] in [place] that might be available. It is a facility for behaviors.
--- NOTE | 2021-03-04 15:45 | NUR ---
03-04-2021--1600--Call to [facility]. I asked for marketing, DON or department administrator. Put on hold again--[address] number [phone]. Called to talk to department administrator. Put on hold again--Told department administrator was in a meeting. Told bilingual receptionist what I needed and she stated the marketing person was sitting right there and she would ask him.--Put on hold--
--- NOTE | 2021-03-04 15:55 | NUR ---
03-04-2021--1600--Call to Zheng davila: referral at [facility]. He stated the state has been in their facility and no one has had time to look at the referral. He promised they would look at it in the AM and call me with an answer.
[2021-03-04 18:03] LABS: URINE BILIRUBIN NEGATIVE (Negative); URINE BLOOD NEGATIVE (Negative); URINE CLARITY CLEAR; URINE COLOR YELLOW; URINE GLUCOSE-RANDOM* NEGATIVE (Negative); URINE KETONES NEGATIVE (Negative); URINE LEUKOCYTES-REFLEX NEGATIVE (Negative); URINE NITRITE-REFLEX NEGATIVE (Negative); URINE PROTEIN (DIPSTICK) NEGATIVE (Negative); URINE SPECIFIC GRAVITY >= 1.030 (1.005-1.035)
--- NOTE | 2021-03-04 18:16 | NUR ---
Zheng was alert and oriented x4 throughout the day. He presented with a flat affect and expresed frustration that he was hoping he was leaving today. He refused to work with PT this shift, and when asked why, he stated "I was hoping to leave today". Pt has also had episodes of incontinence and was encouraged to let staff know when he has to use the bathroom as pt had previously been doing. 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 Pt was cleaned up around lunch, and was noted to have a jelly like substance in his daniel area that did not appear to be from an ointment, order received for a UA that was collected at 1730 when pt was taken to his room after bed. Pt was able to urinate in a urinal at that time. Pt asked for this RN to call his tomorrow and tell her to pick him up. Discharge/placement education was given as pt appears to struggle with the discharge process and pt voiced frustrations regarding this. Pt has no new orders at this time, will continue to monitor.
[2021-03-04 20:24] VITALS: BP 140/79
[2021-03-04 20:30] VITALS: BP 140/79
--- NOTE | 2021-03-05 00:24 | NUR ---
PATIENT HAS BEEN IN BED ALL EVENING. HE STATES HE WAS DISAPPOINTED BECAUSE HE THOUGHT HE WAS GOING TO BE DC/D TODAY. HE STATES HE HAD SPOKEN WITH HIS AND SHE TOLD HIM THAT THEY HAVEN'T FOUND A PLACE FOR HIM TO GO TO YET. HE IS WANTING DISCHARGE ANNA. PATIENT DENIES PAIN. DENIES SI/HI/AVH. HE HAS BEEN APPROPRIATE AND A/0X4. PATIENT HAS URINAL AT BEDSIDE AND WALKER. HE IS A FALL RISK AND BED IS IN LOW POSITION AND BED ALARM IS ON. PT STATES HE HAS NOT HAD AN APPETITE LATELY AND FEELS IT'S BECAUSE HE IS DEPRESSED. ENCOURAGED HIM TO EAT TO KEEP UP HIS STRENGTH FOR PT AND REHAB AND TO BE ABLE TO DISCHARGE FOR FURTHER REHAB. HE AGREED. I TOLD HIM OUR GOAL IS TO KEEP HIM HERE LONG ENOUGH TO HELP HIM GET STABLIZED ON HIS MEDS AND BEHAVIORS AND THEN HE WILL MOVE ON. ENCOURAGED HIM TO WORK WITH THE DOCTORS AND THEIR PLANS TO HEAL MORE QUICKLY. HE THANKED ME FOR THE ENCOURAGEMENT AND WAS GOING TO TRY AND GET SOME SLEEP. HE HAS NOT BEEN INCONTINENT SO FAR TONIGHT. HE TOOK HIS MEDS WHOLE WITH WATER. ROUTINE ROUNDS TO ASSESS SAFETY AND STATUS OF PATIENT.
--- NOTE | 2021-03-05 08:46 | NUR ---
Followup: remains on SBH. Eating 50-100% of meals. Pt eagerly awaiting discharge. Vitamin D deficiency and has vitamin D and calcium carbonate ordered. Presents low nutrition risk
[2021-03-05 09:42] VITALS: BP 120/66
--- NOTE | 2021-03-05 09:46 | NUR ---
MATTHEW spoke with Mago MCKEON) with [facility] who initially said they denied clinically due to pt needing memory care; they are afraid of elopement. MATTHEW explained that pt is not an elopement risk at all. Mago asked MATTHEW to call [facility] at [phone] so they may rethink referral. MATTHEW contacted [facility] and left a msg. Pts family sent email to MATTHEW explaining that [facility] is their preferred choice. MATTHEW team will continue to follow pt during his stay on this unit.
[2021-03-05 09:59] VITALS: BP 120/66
--- NOTE | 2021-03-05 13:59 | NUR ---
MATTHEW and Dr. Ibrahim held an impromptu family meeting with Fide Burgos, and staff attorney Gemini Miller. Gemini said she will be helping pt's family apply for [place] medicaid; this will allow Fide to keep her BERTHA. They do have enough money to pay for 3-6 months of care out of pocket. Dr. Ibrahim okayed the plan of placement in [place] that accepts Medicaid with the idea that pt's family will pay up front until his application has been accepted. MATTHEW sent referrals to the following: [facility] team notified the family of such by email. SW team will continue to follow pt during his stay on this unit.
--- NOTE | 2021-03-05 18:28 | NUR ---
Pt was alert and oriented x4 this shift. He was calm, cooperative, and pleasant throughout the day but did appear more tired this shift. Pt started the day off by sleeping through breakfast but was easily arousable and then wished to eat breakfast, which he at 100% of. He was medication and meal compliant, without difficulty throughout the day. He was withdrawn but appropriate upon approach and appears hopeful and optimistic to be discharged soon. We spoke about him being from [place] and talked about what he used to do for work which pt appeared to enjoy, and was smiling and laughing during the conversation. Pt was in the dayroom for the entire shift. Pt was noted to have a jelly like substance that was coming from his rectum which was seen by this RN yesterday, but OT noted it today coming from his rectum after having gas. PT was nearby and also stated they experienced the same thing with pt on Thursday. This was reported to Dr. Ibrahim and page sent to Dr. Agosto. Orders received for a suppository as pt has not had a BM since Thursday and believes it may be due to constipation. Suppository given this evening after dinner and pt is currently laying in bed waiting for suppository to work. Will continue to monitor.
[2021-03-05 19:30] VITALS: BP 123/48
--- NOTE | 2021-03-05 19:49 | NUR ---
Assumed care on 03/05/21 @ 1900, in bed eyes closed, respirations even and unlabored. Opens eyes to voice, oriented x4, reports on fiction book at bedside that it is not so interesting, but is something to read. Asks about discharge, patient is updated that SW is working on placement, patient acknowledges that he understands that DPOA is working on placement. Will continue to monitor for safety and comfort. Bed in low position, bed alarm set. HRRR, Lungs CTA, ABD Nx4Q. Denies depression, anxiety and hallucinations. reports looking forward to going home.
[2021-03-05 19:54] VITALS: BP 123/48
[2021-03-06 09:48] VITALS: BP 107/55
--- NOTE | 2021-03-06 12:23 | NUR ---
Assumed pt care at 0700. Pt was alert and oriented to person, situation and time. Assessment completed, vss. Lungs clear, active bowel sound. Took meds whole with thin liquid, no difficulty noted. Ambulates with a Tessie chair. Irritable with care. Pt bargains with care and remedy developer AT 9AM. Incontinent of bowel and bladder. Makes needs known to staff. Called son and this AM. Meds administered as scheduled. pt is frustrated, because he feels his never getting out of the hospital. Denies si/hi. denies pain at this time. pt is currently in the day room. Will continue to monitor.
--- NOTE | 2021-03-06 12:31 | NUR ---
SW received notice in tx team that pt will need to discharge by Thursday 03/08. MATTHEW received these updates: [facility] - clinically accepted. [facility] - Interested in patient. Will contact you to do a tour. Sent documentation from 02/19-03/01. [facility] - reviewing referral. Asked for documentation from 02/19-03/01. Notes have been sent. 03/06 [facility] - reviewing referral. Asked for documentation from 02/19-03/01. Notes have been sent. 03/06 Aubrey said his preference is [facility] and he plans to tour that facility today. SW team will continue to follow pt during his stay on this unit.
[2021-03-06 19:47] VITALS: BP 135/54
--- NOTE | 2021-03-07 07:23 | NUR ---
03-06-21 CARE TRANSFERRED 0 OBSERVED PT RESTING IN BED WITH EYES CLOSED. LATER PT AAOX3, VSS, RR EVEN AND NONLABORED ON RA. PT DENIES SI/HI AND PAIN. PT PRESENTS CALM AND COOPERATIVE. DURING MEDICATIN ADMIN PT HAD NO DIFFICULTIES. LATER PT BED ADJUSTED FOR COMFORT, LOWEST POSITON, LOCKED AND ALARM ON. PT IWLL CONTINUE TO BE MONITOR PER [facility] PROTOCOL.
[2021-03-07 10:21] VITALS: BP 121/74
[2021-03-07 11:12] VITALS: BP 121/74
--- NOTE | 2021-03-07 15:18 | NUR ---
Assumed care from overnight shift this am. Client was in gerichair sitting on with blanket around self. Client was A&O x 0, stating that he did not know his name, where he was, what year it was, or the date. Client was told this information, but was unable to verbalize it back to nurse. Client denied depression and anxiety, stating that he was fine. Client stated "not now" when asked about any suicidal thoughts. Client stated no when asked about homicidal thoughts. Client did not want to answer questions about audio or visual hallucinations at this time, nodding head to side, but not verbalizing it despite prompting. Client denied any pain at this time. Client bowel sounds present; bowel sounds normal. Client took at medications during this time. No further issues noted. Will continue to monitor for pt safety and concerns.
--- NOTE | 2021-03-07 15:51 | NUR ---
Updates for placement are as follows: [facility] - clinically accepted. [facility] - Referral denied. Medicaid memory care. Private pay only. [facility] - Says will accept pt. [facility] - referral resent [facility] - Denied. Patient does not meet the culture there as he is not aggressive nor violent enough. [facility] - Denied. Unable to meet needs. Says they do not have a locked unit. SW explained he does not need one. They still denied patient. [facility] - reviewing referral. Asked for documentation from 02/19-03/01. Notes have been sent. 03/06 [facility] - reviewing referral. But not sure they can accept him for tomorrow. Says will see if the skilled facility they are working with will accept. Working with Chandu Goldman for a possible skilled stay. If accepted they will be able to accept pt on 03/08. SW team will continue to follow pt during his stay on this unit.
[2021-03-07 19:37] VITALS: BP 106/56
--- NOTE | 2021-03-08 02:47 | NUR ---
PATIENT IS PLEASANT AND IS ORIENTED TO PERSON AND TIME BUT COULD NOT TELL ME WHERE HE WAS AT. PATIENT STATES HE HAS LOTS OF DEPRESSION AND ANXIETY AND HAS PROBLEMS WITH WET BRITCHES AND THAT HE KNEW HE WAS CAUSING PROBLEMS BECAUSE HE ASK TO SPEAK WITH HIS PARENTS. PATIENT IS ALSO FRUSTRATED AT STILL BEING HERE. PATIENT WAS MEDICATION COMPLIANT AND HAS SLEPT THROUGH THE NIGHT.
[2021-03-08 11:20] VITALS: BP 129/72
[2021-03-08 12:00] VITALS: BP 129/72
[2021-03-08 12:08] VITALS: BP 129/72
--- NOTE | 2021-03-08 12:09 | NUR ---
Patient care resummed, patient was in bed upon shift change. Patient did attend all groups and breakfast and lunch were eaten in the dayroom at the table where he sat with other patients laughing and talking. Patient presented to ROLLING MACHINE TENDER this morning with flat expression, sad, confused and forgetful. Patient A&O*2 (self,time), VSS, lungs clear and unlabored, abdomen soft with bowel sounds present. Patient meal and medication compliant. Patient voiced to ROLLING MACHINE TENDER some frustration about still being here. Patient denies SI/HI/AVH/Pain. Patient voiced depression and anxiety but nothing more than usual. Patient is a high fall risk and precautions are in place. Patient asked to call his at 1020 and staff retreved the patients cell phone and took patient to his room to call on his personal cell phone. GYROSCOPIC INSTRUMENT MECHANIC/ROLLING MACHINE TENDER stayed with patient during phone call. Patient verbalized to his wifi multiple SI comments. Patient stated first the "I will not eat anything until you come get me from this place, if you don't you will never see me again." Then patient proceeded to say "I am going to jump off this roof." ROLLING MACHINE TENDER interved and informed the patient that if he continues to make SI comments he won't be able to go home. ROLLING MACHINE TENDER then stated to patient that if he is feeling like this, that I need him to inform ROLLING MACHINE TENDER so we can get him help. Patient understood, and stated he was sorry, that he is just sad and frustrated. ROLLING MACHINE TENDER allowed patient to finish phonecall and will be reaching out to patients shortly per wifes request. Patient will be discharged today via Doctors orders to a memory care facility at 1500 via express transportation. will continue to monitor patient for safety and behaviors.
[2021-03-08] MEDS ORDERED: FLOMAX0.4 MG PO (14:55)
[2021-03-08] MEDS ORDERED: IRON325 PO (15:00)
[2021-03-08] MEDS ORDERED: LIPITOR40 MG PO (15:06)
[2021-03-08] MEDS ORDERED: BYSTOLIC 5 MG5 M1 PO (15:08)
[2021-03-08] MEDS ORDERED: BENICAR20 MG PO (15:10)
[2021-03-08] MEDS ORDERED: BAYER CHEWABLE81 MG PO (15:11)
[2021-03-08] MEDS ORDERED: DEPAKOTE 250MG250 M1 PO (15:12)
[2021-03-08] MEDS ORDERED: EFFEXOR XR75 MG PO (15:13)
[2021-03-08] MEDS ORDERED: ARTIFICIAL TEA1 EACH OPHTHALMIC (15:14)
[2021-03-08] MEDS ORDERED: CALTRATE-600 W1 EACH PO (15:15)
[2021-03-08] MEDS ORDERED: PROTONIX40 M2 PO (15:16)
[2021-03-08] MEDS ORDERED: VITAMIN D3125 MC1 PO (15:17)
--- NOTE | 2021-03-08 16:22 | NUR ---
MATTHEW recieved a call from GERALD at [facility] requested and admitting order. MATTHEW informed that this is not something the hospital does. What is usually sent is the discharge summary. The DON was demanding something from the doctor or she could not accept the Pt, stating " this is reuired by my administration". Dr. Briseno was able to write a note stating the Pt was discharged. This note was faxed to the facility and placed in the Pt's chart.
--- NOTE | 2021-03-09 23:01 | D ---
[facility] [address] [place] [address] DISCHARGE SUMMARY Name: DONNY TAYLOR Room #: 528A-A [facility] M.R.#: [id number] Admission: 02/18/21 Attend Phys: Nathan Ibrahim DO Discharge: 03/08/21 Date of : 38 Report #: [id number] THIS REPORT FOR: cc: LEONORA - Family physician unknown FAM - Family physician unknown Nathan Ibrahim DO ~ DATE OF SERVICE: 03/08/2021 INPATIENT PSYCHIATRIC DISCHARGE SUMMARY ATTENDING PSYCHIATRIST: Nathan Ibrahim DO REVENUE ENFORCEMENT COLLECTION AGENT: Nathan Agosto MD DISCHARGE DIAGNOSES: Major neurocognitive disorder, 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 MEDICAL COMORBIDITIES: Include fall this spring with head injury, status post intracranial bleed; history of right arm fracture, status post surgical repair; decreased motion of that arm; hypertension, hyperlipidemia, gastroesophageal reflux disease. The patient is discharging to [facility] for memory care, psychiatric and medical care per receiving facility. DISCHARGE MEDICATIONS: As follows: Fluticasone nasal 2 sprays each nostril twice daily for allergies, tamsulosin 0.4 mg oral at bedtime for BPH, ferrous sulfate 325 mg oral daily, atorvastatin 40 mg oral daily for hyperlipidemia, nebivolol 2.5 mg oral daily for hypertension, olmesartan medoxomil 10 mg oral daily for hypertension, aspirin 81 mg oral daily for heart protection, Depakote DR 750 mg oral twice daily for mood stabilization, Effexor XR 225 mg oral daily for depression, the artificial tears every 4 hours as needed for dry eyes, calcium carbonate with vitamin D3 three times a day with meals, pantoprazole 40 mg oral daily for GERD, vitamin D3 cholecalciferol 5000 international units oral daily for supplementation. LABORATORY DATA: Significant laboratories this admission. White count 16.0 on 02/18/2021, H and H 13.3 and 39.9, platelet count 201. Chemistries this admission, sodium 139, potassium 4.7, chloride 101, bicarbonate 29, anion gap 9, BUN 18, creatinine 1.0, estimated GFR 72, glucose 132. A1c 5.5, calcium 9.3, triglycerides 75, cholesterol 96, LDL 44, HDL 37. B12 level 1293. Vitamin D low at 18.6. Urinalysis showed bacteria and light mucus. Depakote level 74 on 03/03/2021. COVID-19 serology was negative on 03/02/2021. Syphilis was negative on 02/26/2021. Influenza A and B was negative on 02/20/2021. EKG was done on this admission, ventricular rate 84, NV interval 155 milliseconds, QT 353 milliseconds, QTc 418, sinus rhythm, inferior infarct, age indeterminate that was read. [address] [address] DISCHARGE SUMMARY Name: DONNY TAYLOR Room #: 528A-A [facility] IN M.R.#: [id number] Admission: 02/18/21 Attend Phys: Nathan Ibrahim DO Discharge: 03/08/21 Date of : 38 Report #: [id number] He is a standby assist with a walker for ambulation. Diet is regular. REASON FOR ADMISSION: An 80-year-old male brought by his family to the ED. The patient has had increased confusion for 1 week, lives with his at home. HOSPITAL COURSE: The patient was admitted to Geriatric Psychiatry Unit. We completed a multidisciplinary evaluation including OT, PT, psychiatry. The patient scored I believe a 15/30 on the SLUMS. That along with our clinical observations led to the diagnosis of major neurocognitive disorder due to cerebrovascular disease. The patient has had a fall with a hemorrhagic bleed in his brain in the spring of this year. The patient improved on this admission. Physical and occupational therapy worked with him fairly extensively. Recommendations; had several family meetings with his and the patient's son. DPOA was enacted as agreement for placing him in long-term care facility at [facility] given his vascular dementia. PHYSICAL EXAMINATION: On the day of discharge, he is not suicidal or homicidal. Temperature 36.4, pulse 77, respirations 17, and BP 129/72. MUSCULOSKELETAL: Assisted gait with walker, standby assist. MENTAL STATUS EXAMINATION: This is a well-developed, fairly nourished male apparently stated age. Attention fair. Concentration limited. He is hard of hearing. Speech soft, normal rate. Thought process: Linear and goal directed. Thought content, focused on discharge. Denied SI or HI. Denied auditory, visual, or tactile hallucinations. Mood and affect was okay, congruent, constricted. Memory known to be impaired. Insight limited. Judgment limited. Fund of knowledge, no greater than average. PROGNOSIS: For this patient is guarded given his age of 80 and having neurodegenerative disorder. <ELECTRONICALLY SIGNED> By: Nathan Ibrahim DO 03/09/21 2301 [id number] Nathan Ibrahim DO /nt
== END 2021-03-08 16:00 | DRG 881 ==
LOC: SBH
PROVIDERS: Hospitalist; Nurse Practitioner Family; ADMIT Psychiatry & Neurology Psychiatry; ATTEND Psychiatry & Neurology Psychiatry
DX: F32.9 Major depressive disorder, single episode, unspecified (principal); F01.51 Vascular dementia, unspecified severity, with behavioral disturbance; S42.301A Unspecified fracture of shaft of humerus, right arm, initial encounter for closed fracture; R45.851 Suicidal ideations; D64.9 Anemia, unspecified; I10 Essential (primary) hypertension; E78.5 Hyperlipidemia, unspecified; I25.10 Atherosclerotic heart disease of native coronary artery without angina pectoris; K21.9 Gastro-esophageal reflux disease without esophagitis; G47.00 Insomnia, unspecified; N40.0 Benign prostatic hyperplasia without lower urinary tract symptoms; Z20.822 Contact with and (suspected) exposure to COVID-19; Z66 Do not resuscitate; G62.9 Polyneuropathy, unspecified; W18.39XA Other fall on same level, initial encounter; Y92.89 Other specified places as the place of occurrence of the external cause; Y99.8 Other external cause status; Z79.82 Long term (current) use of aspirin; Z79.899 Other long term (current) drug therapy; I25.2 Old myocardial infarction; Y93.89 Activity, other specified; Z28.21 Immunization not carried out because of patient refusal
CPT/HCPCS: 10880